=== PATIENT | female | born 1970 | race Caucasian/White ===

== ENCOUNTER → 2020-03-04 10:18 | Outpatient (BNVA) | payer BC, SELFPAY | PROVIDERS: Family Provider Nurse Practitioner Family; PCP Nurse Practitioner Family; Visit Provider Nurse Practitioner | DX: M25.571 Pain in right ankle and joints of right foot (principal) | CPT/HCPCS: 73610 ==

== ENCOUNTER → 2021-04-19 14:20 | Outpatient (BNVA) | payer BC, SELFPAY | PROVIDERS: Family Provider Nurse Practitioner Family; PCP Nurse Practitioner Family; Visit Provider Obstetrics & Gynecology | DX: Z12.4 Encounter for screening for malignant neoplasm of cervix (principal); N93.9 Abnormal uterine and vaginal bleeding, unspecified | CPT/HCPCS: 88175; 88305 ==

== ENCOUNTER → 2021-04-20 09:26 | Outpatient (BNVA) | payer BC, SELFPAY | PROVIDERS: Family Provider Nurse Practitioner Family; PCP Nurse Practitioner Family; Visit Provider Obstetrics & Gynecology | DX: N93.9 Abnormal uterine and vaginal bleeding, unspecified (principal); R10.32 Left lower quadrant pain | CPT/HCPCS: 76830 ==

== ENCOUNTER → 2022-07-13 13:32 | Outpatient (BNVA) | payer BC, SELFPAY | PROVIDERS: Family Provider Nurse Practitioner Family; PCP Nurse Practitioner Family; Visit Provider Registered Nurse Neonatal Intensive Care | DX: S92.355A Nondisplaced fracture of fifth metatarsal bone, left foot, initial encounter for closed fracture (principal); X58.XXXA Exposure to other specified factors, initial encounter; M77.32 Calcaneal spur, left foot; M25.472 Effusion, left ankle | CPT/HCPCS: 73610 ==

== ENCOUNTER 2022-07-17 16:10 | Outpatient (CLI) | payer BC, SELFPAY | END 2022-07-17 16:11 | disposition home or self-care (01) | LOC: SPT 16:11 | PROVIDERS: Family Provider Nurse Practitioner Family; PCP Nurse Practitioner Family; Visit Provider Podiatrist Foot & Ankle Surgery | DX: Z46.89 Encounter for fitting and adjustment of other specified devices (principal); S92.352D Displaced fracture of fifth metatarsal bone, left foot, subsequent encounter for fracture with routine healing; X58.XXXD Exposure to other specified factors, subsequent encounter | CPT/HCPCS: 97760; L4361 ==

== ENCOUNTER → 2022-07-31 14:13 | Outpatient (BNVA) | payer BC, SELFPAY | PROVIDERS: Family Provider Nurse Practitioner Family; PCP Nurse Practitioner Family; Visit Provider Podiatrist Foot & Ankle Surgery | DX: S92.352A Displaced fracture of fifth metatarsal bone, left foot, initial encounter for closed fracture (principal); S93.402A Sprain of unspecified ligament of left ankle, initial encounter; X58.XXXA Exposure to other specified factors, initial encounter | CPT/HCPCS: 73610; 73630 ==

== ENCOUNTER → 2022-08-26 15:35 | Outpatient (BNVA) | payer BC, SELFPAY | PROVIDERS: Family Provider Nurse Practitioner Family; PCP Nurse Practitioner Family; Visit Provider Podiatrist Foot & Ankle Surgery | DX: S92.352A Displaced fracture of fifth metatarsal bone, left foot, initial encounter for closed fracture (principal); S93.402A Sprain of unspecified ligament of left ankle, initial encounter; X58.XXXA Exposure to other specified factors, initial encounter | CPT/HCPCS: 73630 ==

== ENCOUNTER 2022-08-26 16:08 | Outpatient (CLI) | payer BC, SELFPAY | END 2022-08-26 16:09 | disposition home or self-care (01) | LOC: SPT 16:09 | PROVIDERS: Family Provider Nurse Practitioner Family; PCP Nurse Practitioner Family; Visit Provider Podiatrist Foot & Ankle Surgery | DX: Z46.89 Encounter for fitting and adjustment of other specified devices (principal); S92.352D Displaced fracture of fifth metatarsal bone, left foot, subsequent encounter for fracture with routine healing; X58.XXXD Exposure to other specified factors, subsequent encounter | CPT/HCPCS: 97760; L1902 ==

== ENCOUNTER 2022-11-08 08:39 | Outpatient (CLI) | payer BC, SELFPAY ==
--- NOTE | 2022-11-08 08:45 | MR_ITS ---
WS: [id number] EXAMINATION: MR foot LT wo con* [id number] ORDER DATE: 11/08/2022 9:02 AM COMPARISON: None. HISTORY: injury 07/13, still swollen and painful, suspect tendon CONTRAST: None. TECHNIQUE: Sagittal T1, sagittal STIR, coronal PD, coronal T2, axial T1, axial T2, and axial PD imagi ng with fat saturation technique. FINDINGS: Plantar calcaneal spurring. Palpable marker overlying the lower leg at the anterior ankle. Palpable marker overlying the tibialis anterior. Small amount of tenosynovitis with tendinopathy dima g the tibialis anterior which appears intact. Extensor compartment tendons are otherwise intact. Norm al flexor compartment tendons. Trace tenosynovitis along the tibialis posterior. Normal normal peroneal tendons and peroneal tendon sheath. Distal Achilles is normal in appearance. N ormal navicular. Normal cuboid. Normal ankle mortise. Normal talar dome. Normal medial and lateral ma lleolus. No avulsion fractures. Normal deltoid ligament. Small ankle effusion. ATF is not well visual ized likely chronically torn. Posterior talofibular ligament appears intact. Normal plantar aponeurosis. No other suspicious findings. MR/MR foot LT wo con* [id number] IMPRESSION: 1. In the area of palpable concern, along the anterior lower leg, tendinopathy with a small amount of tenosynovitis involving the tibialis anterior. This is directly deep to the palpable marker. 2. Extensor and flexor compartment tendons otherwise within normal limits. Tra ce tenosynovitis along the tibialis posterior. 3. ATF is not visualized likely chronically torn. 4. Small ankle effusion. 5. Otherwise normal ankle mortise. 6. Plantar calcaneal spurring. 7. Distal Achilles is intact.
== END 2022-11-08 08:40 | disposition home or self-care (01) ==
PROVIDERS: PCP Nurse Practitioner Family; Visit Provider Podiatrist Foot & Ankle Surgery
DX: M77.9 Enthesopathy, unspecified (principal); M25.472 Effusion, left ankle; M77.32 Calcaneal spur, left foot
CPT/HCPCS: 73718

== ENCOUNTER 2022-12-12 07:00 | Day surgery (SDC) | payer BC, SELFPAY ==
[2022-12-11 11:19] VITALS: BMI 36.3
[2022-12-12] VITALS (10 sets, daily range): BP systolic 113–160; BP diastolic 72–98; PULSE 72–102; RESP 16–18; TEMP 36.1–36.7; O2SAT 95–99
--- NOTE | 2022-12-12 | XR_ITS ---
WS: [id number] XR ankle LT 2V [id number] REASON FOR EXAM: SURGICAL PROCEDURE FINDINGS: 2 images obtained in surgery. Surgical device on the lateral view overlies the talus and tarsal navic ular. XR/XR ankle LT 2V [id number] IMPRESSION: Intraoperative images as above.
[2022-12-12] MEDS: gabapentin 300 mg Capsule PO (07:27)
[2022-12-12] MEDS: acetaminophen 1,000 MG/100 ML PIGGYBACK 400 MG IV (07:32)
--- NOTE | 2022-12-12 07:36 | W.PM.OPSFHP ---
Same Day Surgery H&P Indication for Procedure/HPI DATE OF PROCEDURE: December 12, 2022 CHIEF COMPLAINT/INDICATIONFOR SURGICAL PROCEDURE: Patient has left ankle pain and chronic ankle instability to the left ankle PREOP DIAGNOSIS: Left ankle chronic ankle instability PLANNED PROCEDURE: Operation Date: 12/12/22 08:00 Proposed Procedures p Left ankle modified Brostr?m with internal brace CPT 66922,?S93.492D(Left) - Weston Tyler DPM Medications/Allergies* Home Medications Medication Instructions Recorded Confirmed Type venlafaxine 150 mg 150 mg PO DAILY 03/04/20 12/11/22 History capsule,extended release 24 hr (Effexor XR) alprazolam 1 mg tablet (Xanax) 1 mg PO TID PRN Anxiety 04/19/21 12/11/22 History cyclobenzaprine 10 mg tablet 10 mg PO TID PRN muscle relaxer 04/19/21 12/12/22 History tramadol 50 mg tablet 50 mg PO Q6H PRN Pain 04/19/21 12/11/22 History triamterene 37.5 1 cap PO DAILY 04/19/21 12/11/22 History mg-hydrochlorothiazide 25 mg capsule Allergies/Adverse Reactions Allergy/AdvReac Type Severity Reaction Status Date / Time No Known Allergies Allergy Verified 12/12/22 07:12 Pertinent History/Comorbid Conditions* Medical History (Updated 07/18/22 @ 06:54 by Weston Tyler DPM) Anxiety Depression History of bilateral breast cancer 06/2012 Hypertension Surgical History (Updated 04/21/21 @ 07:49 by Herlinda Elizondo MD) History of bilateral mastectomy 2011 History of breast reconstruction 2016 History of cholecystectomy 2019 Family History (Updated 04/19/21 @ 13:37 by Rosie Young LPN) Diabetes Father Grandmother Paternal CAD (coronary artery disease) Father Heart disease Father Grandmother Paternal Grandfather Paternal Hyperlipidemia Father Cancer Father Melonoma Brother Pancreatic cancer Hypertension Father Stroke Grandmother Paternal Denies family history of Clotting disorder Chronic kidney disease (CKD) Bleeding disorder Social History Smoking and tobacco status: current every day smoker Pertinent Exam Findings alert, oriented x 3, clear to auscultation bilaterally, regular rate & rhythm, operative site marked and procedure specific exam findings BELOW IS A FOCUSED LOWER EXTREMITY EXAM GENERAL: A&O x 3 VASCULAR: DP/PT pulses palpable 2/4 with CFT intact, <3seconds to distal digits DERMATOLOGICAL: Skin turgor and temperature is within normal limits. No open wounds or skin lesions noted. Nails are well manicured and normotrophic. No interdigital maceration noted. MUSCULOSKELETAL: Tenderness with palpation of lateral ankle ligaments left ankle. Positive anterior drawer. Pain with inversion stress test NEUROLOGICAL: Neurological sensation to the affected foot and ankle is present through L4-S1 dermatomes with no hyper/hypoesthesias, negative Tinel or Valleix's sign CARDIO: Regular rate and rhythm. Normal S1, S2. No murmurs, rubs or gallops RESPIRATORY: Normal respiratory effort. No wheezing or crackles. Clear to auscultation Recommendations Surgery/Procedure today Other Plans: Plan for left ankle modified Brostr?m procedure with internal brace. Coding Level of Care Code Acute Code for Chg Fwd Diagnoses
[2022-12-12] MEDS: sodium chloride 0.9% 1,000 ML 30 ML IV (07:39)
[2022-12-12] MEDS: scopolamine 1.5 Patch 1 PATCH TRANSDERMA (07:40)
[2022-12-12] MEDS: ceFAZolin 2,000 MG in sodium chloride 0.9% (plus) 50 ML 100 MG IV (08:00)
--- NOTE | 2022-12-12 09:30 | PC.NURSE ---
Pt arrived to PACU, awake, A&Ox3, denies any pain or nausea at this time. Dressing to left ankle C/D/I, left toes p/w/d, cap refill <3 seconds, able to wiggle toes. FOB elevated.
--- NOTE | 2022-12-12 09:39 | ANES.PREANE2 ---
Pre-Anesthetic Assessment Height/Weight: Height 1.68 m Weight 102.058 kg Temp Pulse Resp BP Pulse Ox O2 Del Method 97 F L 88 17 113/83 99 Room Air 12/12/22 09:30 12/12/22 09:35 12/12/22 09:35 12/12/22 09:35 12/12/22 09:35 12/12/22 09:35 Preop Diagnosis: Left ankle chronic ankle instability Operation Date: 12/12/22 08:00 Proposed Procedures p Left ankle modified Brostr?m with internal brace CPT 51467,?S93.492D(Left) - Weston Tyler DPM Familial anesthetic complications: none Was Beta Shannan taken within 24 hours: N/A Was Clonidine taken within 24 hours: N/A Last intake: Intake Last Liquid Date 12/11/22 Last Liquid Time 23:30 Last Solid Date 12/11/22 Last Solid Time 21:00 Social No alcohol and No tobacco Exam alert, oriented x 3, clear to auscultation bilaterally and regular rate & rhythm Airway Submandibular: within normal limits Cervical ROM: within normal limits Mallampati: Class II Dentition: full Metabolic Morbid Obesity Neuropsych Anxiety and Depression Anesthetic Plan ASA status: 3 Anesthesia: General and Regional (specify below) (left pop blk) Medications/Allergies Home Medications Medication Instructions Recorded Confirmed Last Taken Type venlafaxine 150 mg 150 mg PO DAILY 03/04/20 12/11/22 12/11/22 History capsule,extended release 24 hr (Effexor XR) alprazolam 1 mg tablet (Xanax) 1 mg PO TID PRN Anxiety 04/19/21 12/11/22 12/10/22 History cyclobenzaprine 10 mg tablet 10 mg PO TID PRN muscle relaxer 04/19/21 12/12/22 09/13/22 History tramadol 50 mg tablet 50 mg PO Q6H PRN Pain 04/19/21 12/11/22 Unknown History triamterene 37.5 1 cap PO DAILY 04/19/21 12/11/22 12/11/22 History mg-hydrochlorothiazide 25 mg capsule Cam Boot to the left #1 ea 07/17/22 11/12/22 Unknown Rx Crutches #1 ea 07/17/22 11/12/22 Unknown Rx ASO brace #1 ea 08/26/22 11/12/22 Unknown Rx hydrocodone 5 mg-acetaminophen 325 1 tab PO Q6H PRN pain #28 tabs 12/12/22 Unknown Rx mg tablet Allergies Allergy/AdvReac Type Severity Reaction Status Date / Time No Known Allergies Allergy Verified 12/12/22 07:12 Current Medications Generic Name Dose Route Start Last Admin Trade Name Freq PRN Reason Stop Dose Admin Sodium Chloride 1,000 mls @ 30 mls/hr 12/12/22 07:15 12/12/22 07:39 Sodium Chloride 0.9% IV 12/13/22 07:14 30 mls/hr .Q24H JARETH Administration PFSH Anesthesia Medical History Anxiety Depression History of bilateral breast cancer 06/2012 Hypertension Surgical History History of bilateral mastectomy 2011 History of breast reconstruction 2016 History of cholecystectomy 2019 Family History Father CAD (coronary artery disease) Cancer Melonoma Heart disease Diabetes Hyperlipidemia Hypertension Brother Cancer Pancreatic cancer Grandmother Heart disease Paternal Diabetes Paternal Stroke Paternal Grandfather Heart disease Paternal Denies family history of Clotting disorder Chronic kidney disease (CKD) Bleeding disorder Social History Smoking and tobacco status: current every day smoker Data Anesthesia Cardiac Studies: No Data to Display Anesthesia Procedures Nerve Block Nerve Block 1: Main Anesthesia: general anesthesia Time Out Performed: Yes Consent: requested by attending/covering physician, from patient, risks and benefits reviewed and patient agrees to proceed Nerve block location: popliteal (left) Anesthesia monitors applied: pulse oximetry, EKG, BP cuff and oxygen Nerve block position: supine Anesthetic Used: ropivicaine 0.5% Amount of anesthesia used (mL): 30 Ultrasound used to: recognize landmarks Nerve Stimulator Used?: No Interscalene/Femoral BLK: 4 stimuplex 21 g needle used for position and inplane approach Injection: neg aspiration of heme Patient Tolerated Procedure: well Complications: none
--- NOTE | 2022-12-12 13:43 | P.OP_ITS ---
Operative Report Date of procedure: December 12, 2022 Pre-op diagnosis: Preop Diagnosis Left ankle chronic ankle instability Post-op diagnosis: Same Post-op findings: Thickened, degenerative anterior talofibular ligament with scar tissue buildup and synovitis Procedure done: Left ankle modified Brostr?m with internal brace CPT 80228 Implants: To DX fiber tack knotless anchors from [employer] and 1 internal brace from [employer] Surgeon: Dr. Weston Tyler, Lorelei.P.M. Estimated blood loss: Less than 5 cc 53 minutes Complications: None Findings: See above Procedure: Patient is a 52-year-old female that has a history of left chronic ankle instability. The patient has had the aforementioned chief complaint for some time. Conservative treatment measures have been attempted and the patient has opted for surgical intervention at this time. A lengthy discussion regarding the procedure, including risks and complications has been had with the patient and is noted in the recent clinic note. Written and verbal consent have been obtained. All patient questions have been answered to the patient?s satisfaction. No written or verbal guarantees have been given or implied. The patient has been NPO since midnight. The history has been reviewed and the history and physical is current. The signed consent was confirmed and placed in the patient chart. Patient imaging has been reviewed and is consistent with the diagnosis. Under mild sedation, the patient was brought into the operating room and left on the gurney in the supine position. IV antibiotics were given by the anesthesia team as preoperative surgical prophylaxis. General sedation was then performed by the anesthesiateam. A popliteal block was performed by the anesthesia department. A pneumatic tourniquet was then placed about the left thigh. The operative extremity was then prepped and draped in the usual fashion. The extremity was then elevated and exsanguinated before the tourniquet was inflated to 325 mmHg. After inflation, the following procedure was then performed. Attention was directed to the left ankle where a curvilinear incision was made a nterior to the lateral malleolus using a #15 blade. Dissection was carried down through the subcutaneous and superficial fascia. Any bleeders were cauterized as necessary during dissection. Dissection was carried down to the anterior fibula. Using a #15 blade the anterior talofibular ligament attachment was reflected distally off the fibula. There was noted to be extensive thickening of the anterior talofibular ligament with scar tissue buildup. There was also noted to be an extravasation of synovitis upon incising the capsule. The lateral talus was visualized and no osteochondral defect was visualized. Next, a guidewire was driven into the talus using the sinus tarsi guide from [employer]. Positioning of the wire was confirmed on C-arm imaging. Next, using a cannulated drill system the talus was drilled in preparation for the internal brace anchor. Next the internal brace anchor was inserted into the talus per the manufacture protocol. The suture tape was removed from the operative field. Next, attention was directed to the fibula. A #15 blade was used to clear off the anterior surface of the fibula. Two DX knotless fiber tack sutures were inserted into the anterior fibula per the manufacture protocol. Next, the drill for the swivel lock anchor was used to drill the anterior fibula. The drill hole was then tapped. The subchondral bone appeared to crumble. It was decided that this was not an adequate position for the swivel lock anchor. A second drill hole was made more superior and more lateral to the first. It was then tapped in preparation for the [employer] anchor. This was noted to be much healthier bone stock. The knotless fiber tack suture was passed through the ATFL to perform the modified Brostr?m repair. Next, the internal brace was anchored into the fibula. The ankle was held in the appropriate position during the modified Brostr?m repair at neutral dorsiflexion and maximum eversion. It was held at neutral during tightening of the internal brace. The left ankle was noted to be stable postoperatively in comparison to preoperative examination. The repair was further augmented using #2 FiberWire from [employer]. The site was irrigated copiously with sterile saline before attention was directed to closure. Subcuticular closure was closed with 4-0 Vicryl followed by skin closed with 4-0 nylon in horizontal mattress fashion. The tourniquet was let down and good hyperemic response was noted to all digits of the left foot. The incision was covered with Xeroform, 4 x 4 gauze, Kerlix before being placed in a well-padded below the knee posterior splint. The patient tolerated the procedure and anesthesia well and without complication. The patient was transported from the operating room to the recovery room with vital signs stable and vascular status intact to all digits of the left foot. The patient was given both written and verbal instructions to remain nonweightbearing to the operative extremity, to keep dressings/splint clean, dry and intact and to take pain medication as directed. The patient will follow-up in the outpatient setting at their scheduled appointment. The patient was discharged with my personal number and was instructed to call if any questions or issues should arise. They were discharged home once anesthesia criteria was met.
--- NOTE | 2022-12-12 15:28 | ANE.PACU2 ---
Inpatient post-anesthesia follow up: Airway intact: Yes Vital signs: Temperature 97.9 F Pulse Rate 72 Respiratory Rate 17 Blood Pressure 143/74 Pulse Oximetry 96 Oxygen Delivery Me thod Room Air Oxygen Flow Rate Fraction of Inspir ed Oxygen Hydration adequate: Yes Nausea and vomiting: No Pain level: 2 Mental status: Baseline
== END 2022-12-12 11:10 | disposition home or self-care (01) ==
PROVIDERS: PCP Nurse Practitioner Family; Visit Provider Podiatrist Foot & Ankle Surgery
PROC: (CPT 27698; principal; 2022-12-12 08:00)
DX: M25.372 Other instability, left ankle (principal); I10 Essential (primary) hypertension; F41.9 Anxiety disorder, unspecified; F32.A Depression, unspecified; F17.200 Nicotine dependence, unspecified, uncomplicated; E66.01 Morbid (severe) obesity due to excess calories; Z68.36 Body mass index [BMI] 36.0-36.9, adult; Z79.891 Long term (current) use of opiate analgesic; M65.872 Other synovitis and tenosynovitis, left ankle and foot
CPT/HCPCS: 27698; 73600; 76000; C1713; J0131; J0690; J1100; J2405; J2704; J2795; J3010; J7030

== ENCOUNTER → 2023-01-09 14:33 | Outpatient (BNVA) | payer BC, SELFPAY | PROVIDERS: PCP Nurse Practitioner Family; Visit Provider Podiatrist Foot & Ankle Surgery | DX: Z98.890 Other specified postprocedural states (principal); S92.352D Displaced fracture of fifth metatarsal bone, left foot, subsequent encounter for fracture with routine healing; X58.XXXD Exposure to other specified factors, subsequent encounter | CPT/HCPCS: 73630 ==

== ENCOUNTER 2023-01-16 06:00 | Outpatient (RCR) | payer BC, SELFPAY | END 2023-02-14 23:59 | disposition home or self-care (01) | LOC: TPT 06:00 | PROVIDERS: Visit Provider Podiatrist Foot & Ankle Surgery | DX: M25.372 Other instability, left ankle (principal) | CPT/HCPCS: 97110; 97163 ==

== ENCOUNTER 2023-02-15 06:00 | Outpatient (RCR) | payer BC, SELFPAY | END 2023-03-17 23:59 | disposition home or self-care (01) | LOC: TPT 06:00 | PROVIDERS: Visit Provider Podiatrist Foot & Ankle Surgery | DX: M25.372 Other instability, left ankle (principal) | CPT/HCPCS: 97110 ==

== ENCOUNTER 2023-03-18 06:00 | Outpatient (RCR) | payer BC, SELFPAY | END 2023-03-25 23:59 | disposition home or self-care (01) | LOC: TPT 06:00 | PROVIDERS: Visit Provider Podiatrist Foot & Ankle Surgery | DX: M25.372 Other instability, left ankle (principal) | CPT/HCPCS: 97110 ==

== ENCOUNTER 2023-07-16 21:31 | Emergency (ER) | payer BC, SELFPAY ==
--- NOTE | 2023-07-16 21:33 | XRR_ITS ---
PROCEDURE INFORMATION: Exam: XR Chest Exam date and time: 07/16/2023 9:54 PM Age: 53 years old Clinical indication: Angina pectoris; Patient HX: Chest pain; HX breast CA & bilat mastectomy; HTN TECHNIQUE: Imaging protocol: Radiologic exam of the chest. Views: 1 view. COMPARISON: MR cervical spin wo con* [id number] 12/17/2017 6:53 AM FINDINGS: Lungs: Unremarkable. No consolidation. Pleural spaces: Unremarkable. No pleural effusion. No pneumothorax. Heart/Mediastinum: Unremarkable. No cardiomegaly. Bones/joints: Unremarkable. XR/XR chest 1V portable [id number] IMPRESSION: No acute findings.
--- NOTE | 2023-07-16 21:36 | ECG_ITS ---
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 Measurements Intervals [place] Rate: 102 P: 129 TN: 139 QRS: 142 QRSD: 102 T: 175 QT: 348 QTc: 455 Interpretive Statements SINUS TACHYCARDIA ARM LEADS REVERSED Otherwise normal No previous ECG available for comparison Electronically Signed On 07-17-2023 16:37:59 [employer] by Martha Mullins M.D. [email or web address]
[2023-07-16 21:39] VITALS: BP 158/94; PULSE 109; RESP 18; TEMP 36.6; O2SAT 99
--- NOTE | 2023-07-16 21:39 | ED_ITS ---
HPI - Chest Pain 2 General: Chief Complaint: Chest Pain Stated Complaint: CP Time Seen by Provider: 07/16/23 21:32 Source: patient and EMS Mode of arrival: EMS Limitations: no limitations History of Present Illness: 53-year-old female states she is having chest pain as pressure type pain in her chest. States pain is worse with 6 out of 10 denies any nausea denies any diaphoresis no history of heart disease. She did have foot surgery in November. She denies any worsening proving factors. Associated symptoms: Deny abdominal pain, dyspnea, fever(s), nausea or vomiting Review of Systems 2 Const: Denies: fever(s), chills, body aches or change in appetite ENMT: Denies: throat pain or dental pain Card: Reports: chest pain Resp: Denies: dyspnea GI: Denies: abdominal pain, nausea, vomiting or diarrhea : Denies: dysuria Musc: Denies: neck pain or back pain Skin/Breast: Denies: rash Neuro: Denies: headache(s) PFSH ED 2 PFSH: Medical History History of bilateral breast cancer 06/2012 Hypertension Depression Anxiety Surgical History History of bilateral mastectomy 2011 History of breast reconstruction 2016 History of cholecystectomy 2019 Family History Father CAD (coronary artery disease) Cancer Melonoma Heart disease Diabetes Hyperlipidemia Hypertension Brother Cancer Pancreatic cancer Grandmother Heart disease Paternal Diabetes Paternal Stroke Paternal Grandfather Heart disease Paternal Denies family history of Clotting disorder Chronic kidney disease (CKD) Bleeding disorder Social History Smoking and tobacco/nicotine status: current every day tobacco/nicotine user Physical Exam 2 Const: COMMON NORMALS: no acute distress, patient oriented x3 and healthy appearing HENMT: COMMON NORMALS: normocephalic and atraumatic HEAD & SCALP: n ormocephalic and atraumatic Eye: COMMON NORMALS: Equal, round and reactive pupils present and EOMs intact bilaterally PUPIL: Yes Equal, round and reactive pupils present Neck/C-Spine: COMMON NORMALS: full ROM and supple Chest: COMMONS NORMALS: normal inspection of the chest and normal palpation of entire chest wall Resp: COMMON NORMALS: normal respiratory effort, No retractions, No use of accessory muscles and clear to auscultation bilaterally AUSCULTATION: clear to auscultation bilaterally Cardio: COMMON NORMALS: regular rate, regular rhythm and No murmurs present (Cardio) RATE: regular rate RHYTHM: regular rhythm GI: COMMON NORMALS: Normal to inspection, nondistended, normoactive bowel sounds present, Soft to palpation, non-tender and no masses PALPATION: Yes Soft to palpation Extremity: COMMON NORMALS: normal to inspection and full ROM Neuro: COMMON NORMALS: patient oriented x3, moves all extremities and no focal motor deficits Psych: COMMON NORMALS: mental status grossly normal, Normal thought process present and cooperative THOUGHT PROCESS: Normal thought process present Skin: COMMON NORMALS: no rashes or lesions noted and no wounds GENERAL SKIN EXAM: no rashes or lesions noted Course 2 Vital Signs: Vital signs: Vital Signs Temperature 98 F 07/16/23 21:39 Pulse Rate 91 07/16/23 22:29 Respiratory Rate 16 07/16/23 22:29 Blood Pressure 123/77 07/16/23 22:29 Pulse Oximetry 92 07/16/23 22:29 Oxygen Delivery Me thod Room Air 07/16/23 21:39 MDM - Chest Pain Medical Decision Making Patient presents for chest pain that is resolved her initial and repeat troponin here are normal D-dimer is negative as well she is stable for discharge she is to follow-up with her PCP she likely needs a stress test outpatient return if worsening she understands agrees to plan. Medical Records I reviewed the patient's medical records. Lab Data I reviewed the patient's lab results. 07/16/23 21:58 07/16/23 21:58 Radiology Impressions Chest X-Ray 07/16/23 21:33 IMPRESSION: No acute findings. Laboratory Results WBC 12.18 10^3/uL (3.29-11.43) H 07/16/23 21:58 RBC 4.91 10^6/uL (3.85-5.65) 07/16/23 21:58 Hgb 13.50 g/dL (11.27-16.99) 07/16/23 21:58 Hct 41.5 % (36-47) 07/16/23 21:58 MCV 84.5 fl (85-98) L 07/16/23 21:58 MCH 27.5 pg (27-33) 07/16/23 21:58 MCHC 32.5 g/dL (30-55) 07/16/23 21:58 RDW 13.2 % (12.1-15.1) 07/16/23 21:58 Plt Count 336 10^3/cmm (157-399) 07/16/23 21:58 MPV 10.2 fL (7.4-10.4) 07/16/23 21:58 Neut % (Auto) 61.3 % 07/16/23 21:58 Lymph % (Auto) 32.8 % 07/16/23 21:58 [place] % (Auto) 5.3 % 07/16/23 21:58 Eos % (Auto) 0.1 % 07/16/23 21:58 Baso % (Auto) 0.2 % 07/16/23 21:58 Neut # (Auto) 7.47 10^3/uL (1.8-7.7) 07/16/23 21:58 Lymph # (Auto) 4.0 10^3/uL (0.8-4.8) 07/16/23 21:58 [place] # (Auto) 0.7 10^3/uL (0.2-0.9) 07/16/23 21:58 Eos # (Auto) 0.0 10^3/uL (0.0-0.8) 07/16/23 21:58 Baso # (Auto) 0.0 10^3/uL (0.0-0.1) 07/16/23 21:58 Nucleated RBC % (auto) 0 % 07/16/23 21:58 Nucleated RBCs # 0.0 /100WBC 07/16/23 21:58 PT 12.30 SECONDS (12.1-14.9) 07/16/23 21:58 INR 0.89 (0.8-1.2) 07/16/23 21:58 D-Dimer 0.41 ug/mLFEU (0-0.59) 07/16/23 21:58 Sodium 140 mmol/L (136-145) 07/16/23 21:58 Potassium 3.5 mmol/L (3.5-5.1) 07/16/23 21:58 Chloride 98 mmol/L (98-107) 07/16/23 21:58 Carbon Dioxide 29 mmol/L (22-29) 07/16/23 21:58 Anion Gap 16.5 (5-19) 07/16/23 21:58 BUN 23 mg/dL (6-20) H 07/16/23 21:58 Creatinine 1.0 mg/dL (0.5-0.9) H 07/16/23 21:58 GFR Calculation 57.6 mL/min (90-130) L 07/16/23 21:58 Glucose 107 mg/dL (65-115) 07/16/23 21:58 Calculated Osmolality 294 mOsm/kg (285-295) 07/16/23 21:58 Calcium 9.6 mg/dL (8.5-10.5) 07/16/23 21:58 Total Bilirubin 0.2 mg/dL (0.15-1.2) 07/16/23 21:58 AST 16 U/L (0-32) 07/16/23 21:58 ALT 18 U/L (0-33) 07/16/23 21:58 Alkaline Phosphatase 160 U/L (35-105) H 07/16/23 21:58 Troponin T Baseline < 6 ng/L (0-10) 07/16/23 21:58 Troponin T 120 Minute 6.00 ng/L (0-10) 07/16/23 23:35 Delta Troponin T 0.78558 ABS# (0-10) 07/16/23 23:35 Total Protein 7.1 g/dL (6.6-8.7) 07/16/23 21:58 Albumin 4.4 g/dL (3.5-5.2) 07/16/23 21:58 Globulin 2.7 g/dL (1.3-4.6) 07/16/23 21:58 Lipase 22 U/L (13-60) 07/16/23 21:58 All radiology interpretation(s) finalized by discharge EKG Data EKG 1: I personally reviewed and interpreted this EKG as follows: EKG interpretation date: 07/16/23 EKG interpretation time: 22:33 Interpretation: nsr hr [address] or t wave abnormalities qrs 101 qtc 449 EKG 2: I personally reviewed and interpreted this EKG as follows: EKG interpretation date: 07/16/23 EKG interpretation time: 23:58 Interpretation: nsr hr [address] or t wave abnormalities qrs 95 qtc 442 Discharge Plan Discharge Patient Disposition: Home Clinical Impression: Chest pain Condition: Stable Prescriptions: No Action venlafaxine [Effexor XR] 150 mg capsule,extended release 24hr 150 mg PO DAILY triamterene-hydrochlorothiazid 37.5-25 mg capsule 1 cap PO DAILY cyclobenzaprine 10 mg tablet 10 mg PO TID PRN (Reason: muscle relaxer) alprazolam [Xanax] 1 mg tablet 1 mg PO TID PRN (Reason: Anxiety) (DME) Cam Boot to the left See Rx Instructions .Route .MEDSUPPLY Qty: 1 0RF Rx Instructions: As directed (DME) Crutches See Rx Instructions .Route .MEDSUPPLY Qty: 1 0RF Rx Instructions: As directed by HOME (DME) ASO brace See Rx Instructions .Route .MEDSUPPLY Qty: 1 0RF Rx Instructions: As directed (DME) ASO brace See Rx Instructions .Route .MEDSUPPLY Qty: 1 0RF Rx Instructions: As directed tramadol 50 mg tablet 50 mg PO Q6H Qty: 16 0RF Hold Instructions: Resume on 12/26/22. Do not take tramadol with norco cyclobenzaprine 10 mg tablet See Rx Instructions .ROUTE .COMPLEX Qty: 20 0RF Dose Instruction: TAKE 1 TABLET BY MOUTH EVERY 12 HOURS Rx Instructions: TAKE 1 TABLET BY MOUTH EVERY 12 HOURS hydrocodone-acetaminophen 5-325 mg tablet 1 tab PO Q6H PRN (Reason: pain) Qty: 28 0RF Discharge Orders: Discharge ED (Routine); Ordered 07/17/23 Ordered By: Marsha Ojeda Discharge Diet: Advance as tolerated Discharge Activity: Resume usual activity Patient Instructions: Chest Pain (ED) Coding Level of Care Code ED System Administration Manager for Catherine Tellez
--- NOTE | 2023-07-16 21:42 | ECG_ITS ---
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 Measurements Intervals [place] Rate: 90 P: 53 RI: 137 QRS: 52 QRSD: 101 T: 56 QT: 401 QTc: 492 Interpretive Statements SINUS RHYTHM Normal EKG No previous ECG available for comparison Electronically Signed On 07-17-2023 16:37:17 ASSEMBLER [employer]DRAULIC BACKHOE by Martha Mullins M.D. [id number]
[2023-07-16 22:11] LABS: Basophils % 0.2 %; Eosinophils % 0.1 %; Hematocrit 41.5 % (36-47); Lymphocytes % 32.8 %; Mean Corpuscular HGB Conc 32.5 g/dL (30-55); Mean Corpuscular Hemoglobin 27.5 pg (27-33); Mean Corpuscular Volume 84.5 fl (85-98); Mean Platelet Volume 10.2 fL (7.4-10.4); Monocytes # 0.7 10^3/uL (0.2-0.9); Monocytes % 5.3 %; Neutrophils # 7.47 10^3/uL (1.8-7.7); Neutrophils % 61.3 %; Nucleated Red Blood Cells % 0 %; Platelet Count 336 10^3/cmm (157-399); Red Blood Count 4.91 10^6/uL (3.85-5.65); Red Cell Distribution Width 13.2 % (12.1-15.1); White Blood Count 12.18 10^3/uL (3.29-11.43)
[2023-07-16 22:26] LABS: INR 0.89 (0.8-1.2)
[2023-07-16 22:28] LABS: D Dimer 0.41 ug/mLFEU (0-0.59)
[2023-07-16 22:29] VITALS: BP 123/77; PULSE 91; RESP 16; O2SAT 92
[2023-07-16 22:32] LABS: Troponin(5th) Baseline < 6 ng/L (0-10)
[2023-07-16 22:33] LABS: Alanine Aminotransferase 18 U/L (0-33); Albumin Level 4.4 g/dL (3.5-5.2); Alkaline Phosphatase 160 U/L (35-105); Anion Gap 16.5 (5-19); Aspartate Amino Transferase 16 U/L (0-32); Blood Urea Nitrogen 23 mg/dL (6-20); Calcium 9.6 mg/dL (8.5-10.5); Carbon Dioxide 29 mmol/L (22-29); Chloride 98 mmol/L (98-107); Globulin 2.7 g/dL (1.3-4.6); Glomerular Filtration Rate 57.6 mL/min (90-130); Glucose 107 mg/dL (65-115); Lipase 22 U/L (13-60); Osmolality Calculated 294 mOsm/kg (285-295); Potassium 3.5 mmol/L (3.5-5.1); Sodium 140 mmol/L (136-145); Total Bilirubin 0.2 mg/dL (0.15-1.2); Total Protein 7.1 g/dL (6.6-8.7)
--- NOTE | 2023-07-16 23:58 | ECG_ITS ---
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 Measurements Intervals [place] Rate: 80 P: 61 NM: 141 QRS: 56 QRSD: 95 T: 56 QT: 405 QTc: 470 Interpretive Statements SINUS RHYTHM Normal EKG Compared to ECG 07/16/2023 22:33:51 No significant changes Electronically Signed On 07-17-2023 16:57:04 PRIVATE INVESTIGATOR by Martha Mullins M.D. [id number]
[2023-07-17 00:04] LABS: Troponin 5 2HR Delta 0.00001 ABS# (0-10)
[2023-07-17 00:20] VITALS: BP 123/77; PULSE 91; RESP 16; TEMP 36.6; O2SAT 92
== END 2023-07-17 00:21 | disposition home or self-care (01) ==
PROVIDERS: Emergency Provider Emergency Medicine; PCP Nurse Practitioner Family
DX: R07.9 Chest pain, unspecified (principal); Z72.0 Tobacco use; I10 Essential (primary) hypertension; Z85.3 Personal history of malignant neoplasm of breast
CPT/HCPCS: 36415; 71045; 80053; 83690; 84484; 85025; 85378; 85610; 93005; 99285

== ENCOUNTER → 2025-02-19 16:14 | Outpatient (BNVA) | payer SELFPAY | PROVIDERS: PCP Nurse Practitioner Family; Visit Provider Emergency Medicine | DX: R19.7 Diarrhea, unspecified (principal) | CPT/HCPCS: 87045; 87427; 87449 ==